=== PATIENT | male | born 1955 | race Caucasian/White ===

== ENCOUNTER 2016-10-28 12:58 | Day surgery (SDC) | payer OTHER ==
[~2016-10-28] VITALS: Ht 180.3 cm; Wt 80.1 kg
[2016-10-28 14:40] VITALS: Ht 180.3 cm; Wt 80.1 kg
[2016-10-28] MEDS ORDERED: TRAMADOL PO (14:55)
[2016-10-28] MEDS ORDERED: HYDROCHLOROTHIAZIDE PO (14:55)
[2016-10-28] MEDS ORDERED: OMEPRAZOLE PO (14:55)
[2016-10-28] MEDS ORDERED: BENAZEPRIL PO (14:55)
[2016-10-28 16:02] VITALS: BP 155/66; PULSE 51; RESP 20
[2016-10-28] MEDS ORDERED: PROPOFOL 20 ML ONE (16:32)
[2016-10-28] MEDS ORDERED: FENTAnyl 50 MCG/ML VIAL ONE (16:33)
[2016-10-28] MEDS ORDERED: MIDAZOLAM 1 MG/ML 2 ML INJ ONE (16:33)
--- NOTE | 2016-10-28 17:08 | OPPN ---
Date/Time of Note Date/Time of Note DATE: 10/28/16 TIME: 17:02 Proc Note GI Procedure date: Oct 28, 2016 Pre-procedure Diagnosis * Colorectal cancer screening Post-procedure Diagnosis Assessment: * Mild diverticulosis, universal distribution * Large internal hemorrhoids Plan: * High-fiber diet * Annual Hemoccult stool testing * Screening colonoscopy in 10 years Operation Performed * Colonoscopy to cecum Surgeon: GUEVARA ALFREDO MD Anesthesia Type: MAC Anesthesiologist: MIRIAM OSBORN MD Estimated blood loss: none Transfusion Required: no Specimen: none Grafts/Implants: none Complications: no Pt Condition post procedure: stable Disposition: PACU Procedure Description After informed consent, with the patient/relatives understanding the procedure, its indications and potential risks and complications, including but not limited to: Allergic reaction, bleeding, perforation, infection, and after all pertinent questions were answered to the patient's satisfaction, the patient/ relatives signed the witnessed informed consent. Following this, premedication was administered slowly IV push under careful cardiovascular and respiratory monitoring with pulse OXIMETRY, automatic blood pressure, and equipment monitor phototypesetting. Once the sedative effect was achieved, the patient was placed in the left lateral decubitus position, digital rectal examination was performed. The colonoscope was then introduced and advanced under visual control throughout all segments of the colon including: the rectum, sigmoid, descending colon, splenic flexure, transverse colon, hepatic flexure, ascending colon and finally reaching the cecum which was clearly identified by transillumination, finger indentation and the ileocecal valve. Careful examination of the mucosa of the lower gastrointestinal tract both on insertion as well as withdrawal of the instrument disclosed the following findings: PREPARATION QUALITY: [Adequate], RECTAL EXAM: The anorectal area was visualized examined and digital rectal examination performed with the following findings: No evidence of perirectal disease, no masses. COLONIC MUCOSA: The mucosa of all segments of the colon was carefully examined and showed the following findings: There is mild diverticulosis throughout the colon. Otherwise the examined mucosa appears within normal limits. There is no evidence of inflammatory changes, polyps or other neoplasms, vascular malformation, or any other abnormality. Large internal hemorrhoids are present The instrument was then withdrawn, the patient tolerated the procedure well and was transferred out of the Endoscopy Suite awake and in good condition to continue recovery under observation. GUEVARA ALFREDO MD Oct 28, 2016 17:08
--- NOTE | 2016-10-28 17:16 | OPPN ---
Date/Time of Note Date/Time of Note DATE: 10/28/16 TIME: 17:08 Proc Note GI Procedure date: Oct 28, 2016 Pre-procedure Diagnosis * Surveillance esophageal varices Post-procedure Diagnosis Assessment: * Grade I/IV esophageal varices * Large gastric varices, no stigmata * Gastritis versus portal gastropathy. * Rule out H. pylori infection. Biopsies obtained Plan: * Follow-up as an outpatient * Consider referral for tips procedure * Review pathology as soon as possible Operation Performed * EGD with biopsies Surgeon: GUEVARA ALFREDO MD Anesthesia Type: MAC Anesthesiologist: MIRIAM OSBORN MD Estimated blood loss: none Transfusion Required: no Specimens 1. Gastric body and antrum Grafts/Implants: none Complications: no Pt Condition post procedure: stable Disposition: PACU Procedure Description After informed consent, with the patient/relatives understanding the procedure, its indications, potential risks and complications, including but not limited to : allergic reaction, bleeding, perforation or infection, and after all pertinent questions were answered to the patients satisfaction, the patient/ relatives signed witnessed informed consent. Following this, premedication was administered slowly IV push under careful cardiovascular and respiratory monitoring with pulse oximetry, automatic blood pressure, and supplier diversity director. Once the sedative effect was achieved the patient was place in the left lateral decubitus, the panendoscope was introduced and advanced under visual control. Careful examination of the upper gastrointestinal tract, both on insertion as well as withdrawal of the instrument disclosing the following findings: ESOPHAGUS: the mucosa of the entire esophagus was carefully examined and showed the following findings: There are grade I/IV esophageal varices with no stigmata. Otherwise the mucosa appears within normal limits. There is no evidence of esophagitis, neoplasm, or stricture. No Hiatal Hernia identified. STOMACH: Upon entrance to the stomach air was insufflated, the gastric glasgow distended normally. The mucosa of the fundus, body and antrum of the stomach was carefully examined both head-on and on retroflexion, and showed the following findings: There are rather large fundal gastric varices with no stigmata. There is erythema and congestion of the mucosa of the body and antrum, consistent with portal hypertensive gastropathy versus gastritis. Biopsies were obtained to rule out H. pylori infection. Otherwise the mucosa appears within normal limits with no abnormalities. There is no evidence of ulcers or neoplasm. PYLORUS: The pylorus was carefully examined and showed the following findings: []the pylorus appears patent and within normal limits, with no evidence of gastric outlet obstruction. DUODENUM: The duodenal mucosa was carefully examined in the duodenal bulb as well as the second portion of the duodenum and showed the following findings: []the mucosa appears unremarkable with no evidence of duodenitis, ulcer or neoplasm. GUEVARA ALFREDO MD Oct 28, 2016 17:16
== END 2016-10-28 18:08 | disposition home or self-care (01) ==
LOC: GIL 12:58
PROVIDERS: ATTEND Internal Medicine Gastroenterology
DX: Z12.11 Encounter for screening for malignant neoplasm of colon (principal); I85.00 Esophageal varices without bleeding; K57.90 Diverticulosis of intestine, part unspecified, without perforation or abscess without bleeding; K64.8 Other hemorrhoids; I10 Essential (primary) hypertension
CPT/HCPCS: 43239; 45378; 88305; 88312; J2250; J3010; Z7610

== ENCOUNTER 2017-10-10 13:02 | Day surgery (SDC) | END 2017-10-10 16:34 | disposition home or self-care (01) ==

== ENCOUNTER 2018-07-25 13:35 | Day surgery (SDC) | payer OTHER ==
[~2018-07-25] VITALS: Ht 180.3 cm; Wt 81.4 kg
[~2018-07-25 13:35] MED LIST: BENAZEPRIL PO; HYDROCHLOROTHIAZIDE PO; OMEPRAZOLE PO; TRAMADOL PO
[2018-07-25 15:12] VITALS: Ht 180.3 cm; Wt 81.4 kg
[2018-07-25 16:02] VITALS: BP 151/73; PULSE 57; RESP 23
[2018-07-25 16:05] VITALS: PULSE 57
[2018-07-25] MEDS ORDERED: PROPOFOL 40 ML ONE (16:31)
[2018-07-25] MEDS ORDERED: LIDOCAINE 100 MG SYRINGE ONE (16:31)
--- NOTE | 2018-07-25 16:31 | PREAC ---
Date/Time of Note Date/Time of Note DATE: 07/25/18 TIME: 16:30 Anesthesia Eval and Record Evaluation Time Pre-Procedure Interview DATE: 07/25/18 TIME: 16:30 Age 62 Sex male NPO: 8 hrs Preoperative diagnosis HX OF ESOPHAGEAL VARICES Planned procedure EGD Past Medical History Past Medical History: Includes Cardio: HTN GI: Other (CIRRHOSIS) Infection(s): Hep C Surgery & Anesthesia Issues No known issue Meds Anticoagulation: No Beta Jeremy within 24 hr: No Reason Beta Jeremy not given: Pt. not on B-Jeremy Reported Medications [Hydrochlorothiazide] No Conflict Check, PO 10/28/16 [Benazepril] No Conflict Check, PO 10/28/16 [Omeprazole] No Conflict Check, PO 10/28/16 [Tramadol] No Conflict Check, PO 10/28/16 Meds reviewed: Yes Allergies Coded Allergies: No Known Drug Allergy (Verified Allergy, Unknown, 10/10/17) Allergies Reviewed: Yes Labs/Studies Labs Reviewed: Reviewed by anesthesiologist test: N/A Pre-procedure Exam Last vitals Vital Signs Date Temp Pulse Resp B/P (MAP) Pulse Ox O2 O2 Flow FiO2 Time Delivery Rate 07/25/18 97.5 57 23 151/73 99 Room Air 16:02 (99) Airway: Adequate mouth opening, Adequate thyromental dist Mallampati: Mallampati II Teeth: Normal Lung: Normal Heart: Normal ASA Physical Status ASA physical status: 4 Emergency: None Planned Anesthetic General/MAC: MAC Planned Pain Management Parenteral pain med Pre-operative Attestations Prior to commencing anesthesia and surgery, the patient was re-evaluated, there was verification of: *The patient's identity *The results of appropriate recent lab work and preoperative vital signs *The above evaluation not changing prior to induction *Anesthetic plan, risk benefits, alternative and complications discussed with patient/family; questions answered; patient/family understands, accepts and wishes to proceed. Blaze Trammell M.D. Jul 25, 2018 16:31
[2018-07-25] MEDS ORDERED: FENTAnyl 50 MCG/ML VIAL ONE (16:32)
--- NOTE | 2018-07-25 16:43 | PAC ---
Date/Time of Note Date/Time of Note DATE: 07/25/18 TIME: 16:43 Post-Anesthesia Notes Post-Anesthesia Note Last documented vital signs Vital Signs Date Temp Pulse Resp B/P (MAP) Pulse Ox O2 O2 Flow FiO2 Time Delivery Rate 07/25/18 97.5 57 23 151/73 99 Room Air 16:02 (99) Activity: WNL Respiratory function: WNL Cardiovascular function: WNL Mental status: Baseline Pain reasonably controlled: Yes Hydration appropriate: Yes Nausea/Vomiting absent: Yes Blaze Trammell M.D. Jul 25, 2018 16:43
== END 2018-07-25 17:50 | disposition home or self-care (01) ==
LOC: GIL 13:35 → REC 13:40 → GIL 17:50
PROVIDERS: ATTEND Internal Medicine Gastroenterology
DX: I85.00 Esophageal varices without bleeding (principal)
CPT/HCPCS: 43239; J2001; J3010; Z7610